=== PATIENT | female | born 1970 | race Caucasian/White ===

== ENCOUNTER 2021-01-22 19:46 | Emergency (ER) | payer MEDICAID ==
[~2021-01-22] VITALS: Ht 170.2 cm; Wt 58.1 kg
[~2021-01-22 19:46] MED LIST: ACID CONTROL20 MG PO; ACIDOPHILUS1 EAC3 PO; ADVAIR 100-501 EACH; AUGMENTIN 875-1 EACH PO; B COMPLEX1 EAC1 PO; BACTRIM DS TAB1 EACH PO; CELEXA40 MG PO; CIPROFLOXACIN500 M1 PO; CLEOCIN HCL150 MG PO; DOXYCYCLINE 10100 MG PO; FOLIC ACID1 MG PO; GLUCOSAMINE HC500 MG PO; GLUCOSAMINE1000 MG; HYDROXYZINE PAM50 MG PO; IBUPROFEN 800800 MG PO; INVEGA9 MG PO; KEFLEX500 MG PO; LATUDA20 MG PO; LATUDA60 MG PO; LORAZEPAM 0.50.5 MG PO; MEN'S MULTI-VI1 EACH PO; MILK THISTLE1 GM; MILK THISTLE150 MG PO; MIRALAX17 GM PO; MULTI-VITAMIN1 EAC5; NAPROSYN500 MG PO; NOHOMEMEDICATIONS; NORCO 10-325 T1 EACH PO; NORCO 5-325 TA1 EACH PO; NORFLEX100 MG PO; OSELB75 PO; PROAIR HFA8.5 GM; SEROQUEL 25 MG25 M1 PO; SYMBICORT80 MCG/4.1 INH; TESSALON PERLE100 MG PO; TRAMADOL 50 MG50 MG PO; ULTRAM 50MG TAB50 MG PO; VALIUM5 MG PO; VITAMIN B-1100 M1 PO; ZOFRAN ODT4 MG PO
[2021-01-22 21:45] VITALS: BP 112/78
== END 2021-01-22 21:46 | disposition home or self-care (01) ==
LOC: M.ERS 19:46
DX: S63.275A Dislocation of unspecified interphalangeal joint of left ring finger, initial encounter (principal); F17.210 Nicotine dependence, cigarettes, uncomplicated; W23.1XXA Caught, crushed, jammed, or pinched between stationary objects, initial encounter; Y93.89 Activity, other specified; Y92.89 Other specified places as the place of occurrence of the external cause; Y99.8 Other external cause status